=== PATIENT | female | born 1990 | race Caucasian/White ===

== ENCOUNTER → 2019-02-03 | Emergency (ER) | payer MEDICAID, OTHER ==
[~2019-02-03] VITALS: Ht 157.5 cm; Wt 53.5 kg
[~2019-02-03] MED LIST: TETanus/Pertussis (Acell)/Diphther VAC/PF (Tdap-Adult) 0.5ml syringe IM ONE
[2019-02-03 20:18] VITALS: BP 139/88
== END | disposition home or self-care (01) ==
LOC: ER 20:02
DX: S60.041A Contusion of right ring finger without damage to nail, initial encounter (principal); W23.0XXA Caught, crushed, jammed, or pinched between moving objects, initial encounter; Y93.89 Activity, other specified; Y92.69 Other specified industrial and construction area as the place of occurrence of the external cause; Y99.9 Unspecified external cause status
CPT/HCPCS: 29130; 73140; 90471; 90715; 99283

== ENCOUNTER 2023-12-14 11:11 | Emergency (ER) | payer MEDICAID ==
[~2023-12-14] VITALS: Ht 157.5 cm; Wt 59.5 kg
[2023-12-14 11:31] VITALS: BP 138/108; PULSE 102; TEMP 97.6; O2SAT 99
[2023-12-14] MEDS ORDERED: TETanus/Pertussis (Acell)/Diphther VAC/PF (Tdap-Adult) 0.5ml syringe IMVAC ONE (13:15)
[2023-12-14] MEDS ORDERED: CEPH-585 PO (13:25)
[2023-12-14] MEDS ORDERED: TRAM50TA2 PO (13:28)
[2023-12-14] MEDS ORDERED: HYDROcodone/acetaminophen 5mg/325mg tablet PO ONE (13:40)
[2023-12-14 14:06] VITALS: RESP 18
== END 2023-12-14 14:08 | disposition home or self-care (01) ==
LOC: ER 11:12
DX: S62.636A Displaced fracture of distal phalanx of right little finger, initial encounter for closed fracture (principal); S62.634A Displaced fracture of distal phalanx of right ring finger, initial encounter for closed fracture; W23.0XXA Caught, crushed, jammed, or pinched between moving objects, initial encounter; Y93.89 Activity, other specified; Y92.89 Other specified places as the place of occurrence of the external cause; Y99.8 Other external cause status
CPT/HCPCS: 73130; 90471; 90715; 99283